=== PATIENT | female | born 1970 | race Caucasian/White ===

== ENCOUNTER → 2017-09-23 | Outpatient (CLI) | payer BC ==
--- NOTE | 2017-09-23 09:34 | DIAGNOSTIC IMAGING REPORT ---
LUMBAR SPINE MRI HISTORY: M54.5 Low back pain M51.9 Lumbar disc disease [id number] TECHNIQUE: Multiplanar multisequence MRI of the lumbar spine was performed without the use of contrast. COMPARISON: None. FINDINGS: For the purpose of the report the L5-S1 disc space will be located on axial image 23 of 25. No fracture or subluxation. Normal marrow signal intensity seen throughout the visualized osseous structures. This spaces are relatively preserved for age. The conus terminates at the L2 level. Mild subcutaneous edema within the lumbar region. The visualized retroperitoneal soft tissues are unremarkable. L1-L2: No significant central canal or neural foraminal narrowing. L2-L3: No significant central canal or neural foraminal narrowing. L3-L4: No significant central canal or neural foraminal narrowing. Tiny focal central annular tear. L4-L5: No significant central canal or neural foraminal narrowing. L5-S1: Best seen on sagittal image 9 and axial image 24 there is a tiny left paracentral disc extrusion which abuts but does not displace the transiting left S1 nerve root. This measures 3 mm. No central canal or neural foraminal narrowing. IMPRESSION: 1. A tiny left paracentral disc extrusion at L5-S1 which abuts but does not displace the transiting left S1 nerve root. This measures 3 mm. No central canal or neural foraminal narrowing. 2. Tiny focal central annular tear at L3-L4 without significant central canal or neural foraminal narrowing. 3. No fracture or subluxation within the lumbar spine. Electronically signed by: Evens Weaver M.D. 09/23/2017 9:33 AM Dictated Date/Time: 09/23/2017 9:23 AM
== END | disposition home or self-care (01) ==
LOC: C.MRI 07:44
PROVIDERS: ATTEND Family Medicine
DX: M51.27 Other intervertebral disc displacement, lumbosacral region (principal)